=== PATIENT | female | born 1980 | race Caucasian/White ===

== ENCOUNTER 2024-12-25 18:05 | Emergency (ER) | payer BC, SELFPAY ==
[2024-12-25 18:13] VITALS: BP 152/84; PULSE 89; RESP 20; TEMP 37; O2SAT 99; BMI 18.0
[2024-12-25 22:17] VITALS: BP 128/64; PULSE 68; RESP 18; TEMP 37.2; O2SAT 97
== END 2024-12-26 00:31 | disposition left against medical advice (07) ==
PROVIDERS: Emergency Provider Emergency Medicine; PCP Naturopath
DX: S61.019A Laceration without foreign body of unspecified thumb without damage to nail, initial encounter (principal)
CPT/HCPCS: 99281